=== PATIENT | female | born 1970 | race Caucasian/White ===

== ENCOUNTER 2018-08-16 06:57 | Emergency (ER) | payer BC ==
[~2018-08-16] VITALS: Ht 160 cm; Wt 99.5 kg
[2018-08-16] MEDS ORDERED: KETOROLAC 30MG/ML VIAL IM STA (07:25)
[2018-08-16] MEDS ORDERED: ONDANSETRON 4MG ODT PO STA (07:25)
[2018-08-16 08:12] LABS: BASOPHILS % 0.6 % (0.0-2.0); EOSINOPHILS % 1.5 % (0.0-5.0); HEMATOCRIT. 40.8 % (36.0-48.0); HEMOGLOBIN. 14.4 g/dL (12.0-16.0); LYMPHOCYTES % 19.1 % (20.0-50.0); MEAN CORPUSCULAR HEMOGLOBIN 34.4 pg (28.0-32.0); MEAN CORPUSCULAR VOLUME 97.6 fL (81.0-99.0); MEAN PLATELET VOLUME 11.2 fl (7.4-10.4); NEUTROPHILS % 72.8 % (40.0-76.0); PLATELET 148 x1000/uL (130-400); RED BLOOD CELL COUNT 4.18 mill/uL (4.2-5.4); RED CELL DISTRIBUTION WIDTH 13.1 % (11.6-14.6)
[2018-08-16 08:13] LABS: CLARITY URINE CLEAR (CLEAR); COLOR URINE YELLOW (YELLOW); KETONES URINE 2+ (NEGATIVE); LEUKOCYTE ESTERASE URINE 2+ (NEGATIVE); NITRITE URINE NEGATIVE (NEGATIVE); OCCULT BLOOD URINE 2+ (NEGATIVE); PH URINE 5.5 (4.5-8.0); PROTEIN URINE NEGATIVE (NEGATIVE); SPECIFIC GRAVITY URINE 1.015 (1.005-1.030); UROBILINOGEN URINE 0.2 E.U./dL (0.2-1.0)
[2018-08-16 08:15] LABS: CHLORIDE 99 mEq/L (98-107)
[2018-08-16 09:15] VITALS: BP 122/69
== END 2018-08-16 09:54 | disposition home or self-care (01) ==
LOC: ER 07:16
DX: N39.0 Urinary tract infection, site not specified (principal); R19.7 Diarrhea, unspecified; E11.9 Type 2 diabetes mellitus without complications
CPT/HCPCS: 36415; 80053; 81003; 81025; 82962; 83690; 85025; 96372; 99284; J1885; Q0162; Z7610